=== PATIENT | female | born 1960 | race Caucasian/White ===

== ENCOUNTER 2016-10-14 12:43 | Day surgery (SDC) | payer OTHER ==
[~2016-10-14 12:43] MED LIST: Lactated Ringers 1,000 ML IV SCH; Lidocaine 1%/Sod Bicarbonate in NS 8.4% 1 ML Syringe PRN; Sodium Chloride 0.9% 10 ML Syringe FLUSH PRN
--- NOTE | 2016-10-14 13:11 | PCM.PREANE ---
Preanesthetic Assessment - Anesthesia/Transfusion/Family Hx Anesthesia History: Prior Anesthesia Reaction Type of Anesthesia Reaction: Excessive Nausea/Vomiting Family History of Anesthesia Reaction: No Transfusion History: Unknown Type of Transfusion Reactions: Reports: Unknown - Review of Systems General: No Symptoms Pulmonary: No Symptoms, Other (snoring, current smoker) Cardiovascular: Chest Pain (on a rare occasion), Palpitations (s/p 07/2015 holter monitor showed PSVT with asymptomatic) Gastrointestinal: Other (GERD, hiatal hernia) Neurological: No Symptoms Other: Reports: None - Physical Assessment NPO Status Date: 10/14/16 NPO Status Time: 06:00 (liquids) Pulse: 58 O2 Sat by Pulse Oximetry: 99 Respiratory Rate: 16 Blood Pressure: 120/68 Temperature: 98 C Height: 1.52 m Weight: 77.111 kg ASA Class: 2 Mental Status: Alert & Oriented x3 Airway Class: Mallampati = 2 Dentition: Reports: Normal Dentition Thyro-Mental Finger Breadths: 3 Mouth Opening Finger Breadths: 2 ROM/Head Extension: Full Lungs: Clear to auscultation, Normal respiratory effort Cardiovascular: Regular Rate, Regular Rhythm - Allergies Allergies/Adverse Reactions: Allergies Allergy/AdvReac Type Severity Reaction Status Date / Time strawberry Allergy Anaphylactic Verified 05/28/16 10:53 Shock - Blood Blood Available: No Product(s) Available: None - Acknowledgements Anesthesia Type Planned: General Anesthesia Pt an Appropriate Candidate for the Planned Anesthesia: Yes Alternatives and Risks of Anesthesia Discussed w Pt/Guardian: Yes Pt/Guardian Understands and Agrees with Anesthesia Plan: Yes PreAnesthesia Questionnaire Cardiovascular History: Reports: Heart Murmur Gastrointestinal History: Reports: GERD - SUBSTANCE USE Smoking Status *Q: Current Every Day Smoker Second Hand Smoke Exposure: Yes Days Per Week of Alcohol Use: 0 Number of Drinks Per Day: 0 Total Drinks Per Week: 0 Recreational Drug Use History: No - HOME MEDS Home Medications: Home Meds Ascorbic Acid 500 mg PO ASDIRECTED PRN 07/14/14 [History] Acetaminophen [Tylenol] 650 mg DAILY 05/28/16 [History] Ibuprofen 400 mg PO ASDIRECTED PRN 05/28/16 [History] - CURRENT (IN HOUSE) MEDS Current Meds: Current Medications Lactated Ringer's (Ringers, Lactated) 1,000 mls @ 125 mls/hr IV ASDIRECTED TOAN Stop: 10/14/16 23:00 Lidocaine/Sodium Bicarbonate (Buffered Lidocaine 1% In Ns 8.4%) 0.25 ml .XX ONETIME PRN PRN Reason: Prior to IV Start Stop: 10/14/16 18:00 Sodium Chloride (Saline Flush) 10 ml FLUSH ASDIRECTED PRN PRN Reason: Keep Vein Open Stop: 10/14/16 18:00
[2016-10-14] MEDS ORDERED: HYDROmorphone 0.5 MG/0.5 ML Syringe IVPUSH PRN (13:12)
[2016-10-14] MEDS ORDERED: Scopolamine 1.5 MG Transdermal Patch TRDERM ONE (13:12)
[2016-10-14] MEDS ORDERED: Metoclopramide 10 MG/2 ML SDV IVPUSH PRN (13:12)
[2016-10-14] MEDS ORDERED: Ondansetron 4 MG/2 ML SDV IVPUSH PRN (13:12)
[2016-10-14] MEDS ORDERED: fentaNYL 100 MCG/2 ML SDV IVPUSH PRN ×2 (13:12→15:21)
[2016-10-14] MEDS ORDERED: Bupivacaine 0.5%/EPINEPHrine 1:200,000 50 ML MDV ONE (13:22)
[2016-10-14] MEDS ORDERED: Lidocaine 1% with EPINEPHrine 1:100,000 20 ML MDV ONE (13:23)
[2016-10-14] MEDS ORDERED: ceFAZolin 1 GM Vial ONE (13:32)
[2016-10-14] MEDS ORDERED: Propofol 200 MG/20 ML SDV ONE (13:32)
[2016-10-14] MEDS ORDERED: fentaNYL 250 MCG/5 ML SDV ONE (13:32)
[2016-10-14] MEDS ORDERED: Midazolam 1 MG/ML 2 ML SDV ONE (13:32)
[2016-10-14] MEDS ORDERED: Ondansetron 4 MG/2 ML SDV ONE (14:46)
[2016-10-14] MEDS ORDERED: Dexamethasone 4 MG/ML 5 ML MDV ONE (14:46)
--- NOTE | 2016-10-14 15:34 | PCM.OPNOTE ---
- General Post-Op/Procedure Note Date of Surgery/Procedure: 10/14/16 Operative Procedure(s): Laparoscopic cholecystectomy with incidental primary epigastric hernia repair Pre Op Diagnosis: Gallbladder polyp Post-Op Diagnosis: 1. Gallbladder polyp. 2. Intra-abdominal adhesions. 3. Chronic cholecystitis. 4. Small gallstones. 5. Epigastric hernia Anesthesia Technique: General ET tube, Local Primary Surgeon: Bree Espinosa Anesthesia Provider: Claire Williamson Pathology: Gallbladder Fluid Replacement, Intraop: 1,500 (mL crystalloid ) EBL in mLs: 5 Complications: None Condition: Good Free Text/Narrative:: INDICATION FOR PROCEDURE: The patient is a 56-year-old woman who had been referred to me by CADY Sweet for evaluation for a variety of abdominal symptoms. During her work-up we did find a 2.4 cm gallbladder polyp on ultrasound and I recommended laparoscoic cholecystectomy. I discussed with the patient performing a laparoscopic cholecystectomy and associated risks of the procedure. The patient found these risks acceptable and agreed to proceed. DESCRIPTION OF PROCEDURE: The patient was taken to the operating room and placed in the supine position. Sequential compressive devices were placed on the bilateral lower extremities. After induction of general endotracheal anesthesia, the abdomen was prepped and draped in the usual sterile fashion. Preoperative antibiotics had been administered as per protocol. A supraumbilical curvilinear incision was made using a scalpel. This was deepened down through the subcutaneous tissues to the anterior abdominal wall fascia and a small epigastric hernia was noted superior to the umbilicus. This was used to gain entry into the abdomen. The abdomen was bluntly entered using a hemostat. An 0 Vicryl stay suture was placed. A Evans cannula was introduced into the abdomen and the abdomen was insufflated to 15 mm of mercury. The abdomen was then surveyed. There were a few omental adhesions on the inferior anterior abdominal wall. The bilateral groins showed no evidence of hernia. There were no obvious abnormalities of the small or large intestine. Attention was turned then to the patient's gallbladder which had several omental adhesions. Two additional 5 mm trocars were then placed under direct visualization after first injecting local anesthetic, one in the epigastrium and one in the right subcostal margin. The gallbladder fundus was elevated, and the triangle of Calot was dissected. The omental adhesions were taken down using blunt dissection and electrocautery. The critical view of safety was obtained. The cystic duct and the cystic artery were triply clipped and transected using [facility] [place]. The gallbladder was then taken off the liver bed using hook electrocautery. The gallbladder was placed into an EndoCatch bag. The abdomen was irrigated and suctioned until the effluent was clear. The liver bed was reinspected for hemostasis. The 5 mm trocars were removed with no evidence of bleeding. The Evans cannula and gallbladder within the EndoCatch bag were then removed. The patient's small epigastric hernia was closed using an 0 Vicryl figure-of- eight suture. Additional local anesthetic was injected reza-incisionally. The incisions were then closed using subcuticular 4-0 Monocryl suture. Dermabond was placed over the patient's skin incisions. The patient was then awakened from anesthesia, extubated, and transferred to the recovery room in stable condition having tolerated the procedure well. Sponge and instrument counts were reported as correct at the end of the case. POSTOPERATIVE PLAN: The patient will be discharged home today. Prescriptions for Percocet 5/325mg were given in addition to Zofran ODT and Senna S. They will follow up in 2 weeks for a post-operative check. They are not lift over 20 pounds for the next 4 weeks. They are to call the office with any questions or concerns. I spoke with the patient's daughter after the procedure.
--- NOTE | 2016-10-14 15:42 | PCM.POSTAN ---
POST ANESTHESIA ASSESSMENT - MENTAL STATUS Mental Status: alert, oriented - VITAL SIGNS Pulse Rate: 65 SaO2: 98 Resp Rate: 16 Blood Pressure: 131/81 Temperature: 36.3 C - RESPIRATORY Respiratory Status: respiratory rate WNL, airway patent, O2 saturation stable - CARDIOVASCULAR CV Status: pulse rate WNL, blood pressure stable - GASTROINTESTINAL GI Status: no symptoms - PAIN Pain Score: 6 (Pt given fentanyl 50 mcg) - POST OP HYDRATION Hydration Status: adequate & stable
[2016-10-14] MEDS: HYDROmorphone 0.5 MG/0.5 ML Syringe IVPUSH PRN ×2 (15:51→16:11)
--- NOTE | 2016-10-14 16:08 | PCM48HPAN ---
Post Anesthesia Note - EVALUATION WITHIN 48HRS OF ANESTHETIC Vital Signs in Normal Range: Yes Patient Participated in Evaluation: Yes Respiratory Function Stable: Yes Airway Patent: Yes Cardiovascular Function Stable: Yes Hydration Status Stable: Yes Pain Control Satisfactory: Yes Nausea and Vomiting Control Satisfactory: Yes Mental Status Recovered: Yes
--- NOTE | 2016-10-14 16:38 | PCM.SURGPN ---
- General Info Date of Service: 10/14/16 - Patient Data Vitals - most recent: Last Vital Signs Temp 97.5 F 10/14/16 16:30 Pulse 65 10/14/16 15:42 Resp 15 10/14/16 16:30 BP 117/76 10/14/16 16:30 Pulse Ox 97 10/14/16 16:30 Weight - most recent: 161 lb I&O - last 24 hours: Intake & Output 10/14/16 10/14/16 10/14/16 06:59 14:59 22:59 Intake Total 1500 Balance 1500 Med Orders - Current: Current Medications Fentanyl (Sublimaze) 50 mcg IVPUSH Q5M PRN PRN Reason: pain Stop: 10/14/16 18:00 Last Admin: 10/14/16 15:39 Dose: 50 mcg Lactated Ringer's (Ringers, Lactated) 1,000 mls @ 125 mls/hr IV ASDIRECTED TOAN Stop: 10/14/16 23:00 Last Admin: 10/14/16 13:20 Dose: 125 mls/hr Lidocaine/Sodium Bicarbonate (Buffered Lidocaine 1% In Ns 8.4%) 0.25 ml .XX ONETIME PRN PRN Reason: Prior to IV Start Stop: 10/14/16 18:00 Last Admin: 10/14/16 13:19 Dose: 0.25 ml Metoclopramide HCl (Reglan) 10 mg IVPUSH ONETIME PRN PRN Reason: Nausea/Vomiting Stop: 10/14/16 18:00 Ondansetron HCl (Zofran) 4 mg IVPUSH ONETIME PRN PRN Reason: Nausea/Vomiting Stop: 10/14/16 18:00 Sodium Chloride (Saline Flush) 10 ml FLUSH ASDIRECTED PRN PRN Reason: Keep Vein Open Stop: 10/14/16 18:00 Discontinued Medications Bupivacaine HCl/Epinephrine Bitart (Marcaine 0.5%/Epinephrine 1:200,000) Confirm Administered Dose 50 ml .ROUTE .STK-MED ONE Stop: 10/14/16 13:23 Last Admin: 10/14/16 14:39 Dose: 6.5 ml Cefazolin Sodium (Ancef) Confirm Administered Dose 2 gm .ROUTE .STK-MED ONE Stop: 10/14/16 13:33 Dexamethasone (Dexamethasone) Confirm Administered Dose 20 mg .ROUTE .STK-MED ONE Stop: 10/14/16 14:47 Fentanyl (Sublimaze) Confirm Administered Dose 250 mcg .ROUTE .STK-MED ONE Stop: 10/14/16 13:33 Fentanyl (Sublimaze) 50 mcg IVPUSH Q5M PRN PRN Reason: Pain Stop: 10/14/16 15:37 Hydromorphone HCl (Dilaudid) 0.5 mg IVPUSH Q15M PRN PRN Reason: Pain (severe 7-10) Stop: 10/14/16 13:28 Hydromorphone HCl (Dilaudid) 0.5 mg IVPUSH Q15M PRN PRN Reason: Severe pain Stop: 10/14/16 15:37 Last Admin: 10/14/16 16:11 Dose: 0.5 mg Lidocaine/Epinephrine (Xylocaine 1% With Epinephrine 1:100,000) Confirm Administered Dose 20 ml .ROUTE .STK-MED ONE Stop: 10/14/16 13:24 Last Admin: 10/14/16 14:39 Dose: 6.5 ml Midazolam HCl (Versed 1 Mg/Ml) Confirm Administered Dose 2 mg .ROUTE .STK-MED ONE Stop: 10/14/16 13:33 Ondansetron HCl (Zofran) Confirm Administered Dose 4 mg .ROUTE .STK-MED ONE Stop: 10/14/16 14:47 Propofol (Diprivan 20 Ml) Confirm Administered Dose 200 mg .ROUTE .STK-MED ONE Stop: 10/14/16 13:33 Scopolamine (Transderm-Scop) 1.5 mg TRDERM ONETIME ONE Stop: 10/14/16 13:13 Last Admin: 10/14/16 13:35 Dose: 1.5 mg - Problem List & Annotations (1) Gallbladder polyp SNOMED Code(s): 720557621 Code(s): K82.4 - CHOLESTEROLOSIS OF GALLBLADDER Status: Acute Current Visit: Yes (2) Chronic cholecystitis SNOMED Code(s): 56668627 Code(s): K81.1 - CHRONIC CHOLECYSTITIS Status: Acute Current Visit: Yes (3) Gallstones SNOMED Code(s): 884389255 Code(s): K80.20 - CALCULUS OF GALLBLADDER W/O CHOLECYSTITIS W/O OBSTRUCTION Status: Acute Current Visit: Yes - My Orders Last 24 Hours: Active Orders 24 hr Category Date Time Status Communication Order [RC] ROUTINE Care 10/14/16 13:12 Active Communication Order [RC] ROUTINE Care 10/14/16 15:20 Active Cooling Warming Measures [RC] ASDIRECTED Care 10/14/16 13:12 Active Cooling Warming Measures [RC] ASDIRECTED Care 10/14/16 15:20 Active EKG Documentation Completion [RC] URGENT Care 10/14/16 13:15 Active Notify Provider [RC] ASDIRECTED Care 10/14/16 13:12 Active Notify Provider [RC] ASDIRECTED Care 10/14/16 15:20 Active Oxygen Therapy [RC] ASDIRECTED Care 10/14/16 13:12 Active Oxygen Therapy [RC] ASDIRECTED Care 10/14/16 15:20 Active Peripheral IV Care [RC] . DIRECTED Care 10/14/16 00:01 Active Pulse Oximetry [RC] ASDIRECTED Care 10/14/16 13:12 Active Pulse Oximetry [RC] ASDIRECTED Care 10/14/16 15:20 Active Ready for Discharge [RC] PER UNIT ROUTINE Care 10/14/16 15:54 Active Verify Patient Consent Obtain [RC] ASDIRECTED Care 10/14/16 00:01 Active Vital Signs [RC] Q15M Care 10/14/16 13:12 Active Vital Signs [RC] Q15M Care 10/14/16 15:20 Active Lactated Ringers [Ringers, Lactated] 1,000 ml Med 10/14/16 00:01 Active IV ASDIRECTED Lidocaine 1%/Sod Bicarbonate [Buffered Lidocaine 1% in Med 10/14/16 00:01 Active NS 8.4%] 0.25 ml .XX ONETIME PRN Metoclopramide [Reglan] Med 10/14/16 13:12 Active 10 mg IVPUSH ONETIME PRN Ondansetron [Zofran] Med 10/14/16 13:12 Active 4 mg IVPUSH ONETIME PRN Sodium Chloride 0.9% [Saline Flush] Med 10/14/16 00:01 Active 10 ml FLUSH ASDIRECTED PRN fentaNYL [Sublimaze] Med 10/14/16 13:12 Active 50 mcg IVPUSH Q5M PRN Medication Administration Instruction [OM.PC] Routine Oth 10/14/16 00:01 Ordered Peripheral IV Insertion Adult [OM.PC] Routine Oth 10/14/16 00:01 Ordered Medication Orders Fentanyl (Sublimaze) 50 mcg IVPUSH Q5M PRN PRN Reason: pain Stop: 10/14/16 18:00 Last Admin: 10/14/16 15:39 Dose: 50 mcg Lactated Ringer's (Ringers, Lactated) 1,000 mls @ 125 mls/hr IV ASDIRECTED TOAN Stop: 10/14/16 23:00 Last Admin: 10/14/16 13:20 Dose: 125 mls/hr Lidocaine/Sodium Bicarbonate (Buffered Lidocaine 1% In Ns 8.4%) 0.25 ml .XX ONETIME PRN PRN Reason: Prior to IV Start Stop: 10/14/16 18:00 Last Admin: 10/14/16 13:19 Dose: 0.25 ml Metoclopramide HCl (Reglan) 10 mg IVPUSH ONETIME PRN PRN Reason: Nausea/Vomiting Stop: 10/14/16 18:00 Ondansetron HCl (Zofran) 4 mg IVPUSH ONETIME PRN PRN Reason: Nausea/Vomiting Stop: 10/14/16 18:00 Sodium Chloride (Saline Flush) 10 ml FLUSH ASDIRECTED PRN PRN Reason: Keep Vein Open Stop: 10/14/16 18:00
[2016-10-14 17:03] VITALS: BP 113/64
[2016-10-14] MEDS ORDERED: Acetaminophen/oxyCODONE 325-5 MG Tab PO PRN (17:04)
== END 2016-10-14 17:34 | disposition home or self-care (01) ==
LOC: JD.SDS 12:43
PROVIDERS: ATTEND Surgery
DX: K81.1 Chronic cholecystitis (principal); K43.9 Ventral hernia without obstruction or gangrene; K66.0 Peritoneal adhesions (postprocedural) (postinfection); K21.9 Gastro-esophageal reflux disease without esophagitis; Z98.890 Other specified postprocedural states; Z91.018 Allergy to other foods; Z90.710 Acquired absence of both cervix and uterus
CPT/HCPCS: 47562; 49570; 88304; 93005; A9270; J0690; J1100; J1170; J2250; J2405; J3010; J7120; 00790; J2704

== ENCOUNTER 2017-12-09 15:00 | Emergency (ER) | payer OTHER ==
[2017-12-09 15:12] VITALS: BP 158/96
[2017-12-09] MEDS ORDERED: Ondansetron 4 MG/2 ML SDV IVPUSH ONE (15:47)
[2017-12-09] MEDS ORDERED: Sodium Chloride 0.9% 1,000 ML IV ONE (15:47)
[2017-12-09] MEDS ORDERED: HYDROmorphone 0.5 MG/0.5 ML SYRINGE IVPUSH ONE ×2 (15:48→17:22)
[2017-12-09] MEDS ORDERED: Alum Hydrox/Mag Hydrox/Simeth 30 ML, Lidocaine 2% 15 ML PO ONE ×2 (15:49)
--- NOTE | 2017-12-09 15:54 | EDM.PDOC ---
ED HPI GENERAL MEDICAL PROBLEM - General Chief Complaint: Abdominal Pain Stated Complaint: ABD PAIN/VOMITING Time Seen by Provider: 12/09/17 15:28 Source of Information: Reports: Patient History Limitations: Reports: No Limitations - History of Present Illness INITIAL COMMENTS - FREE TEXT/NARRATIVE: Patient is a 57-year-old female who presents ED complaining of epigastric pain. Pain is described as a cramping sensation localized with no radiation. States it came on approx 1.5 hours ago while at work. She became dizzy, nauseated, and had multiple episodes of emesis. She's had multiple attacks as such. Normally symptoms only last for a few minutes and subsided quickly. She states this was different since it lasted for so long. Upon admission to the ED symptoms are improving. She's never been evaluated in the emergency department before for this complaint. She's been seen by a GI doctor at [facility] with multiple imaging and studies obtained. She has a MRI scheduled for January 06 to evaluate for lesions/cyst to her liver. She's had CT the abdomen, gallbladder removed, appendix removed, EGD, and colonoscopy with no clear etiology for discomfort. She denies any acid reflux. No pain worsened with eating. There has been no documented fever, diarrhea, blood in her stool, dysuria, chest pain, and/or shortness of breath. She does have a history of chronic constipation and has to take laxatives and to have a BM. The dicyclomine is used for abdominal cramping as well. She takes it four times a day. Upper Abdomen Pain Score (Numeric/FACES): 9 - Related Data Allergies Allergy/AdvReac Type Severity Reaction Status Date / Time strawberry Allergy Anaphylactic Verified 12/09/17 15:26 Shock Home Meds: Home Meds DULoxetine [Cymbalta] 30 mg PO DAILY 12/09/17 [History] Dicyclomine [Bentyl] 10 mg PO QIDACANDBED PRN 12/09/17 [History] Gabapentin [Neurontin] 200 mg PO BEDTIME 12/09/17 [History] Lisinopril [Prinivil] 5 mg PO BID 12/09/17 [History] Meloxicam 15 mg PO DAILY 12/09/17 [History] Omeprazole 20 mg PO DAILY 12/09/17 [History] Rosuvastatin [Crestor] 5 mg PO DAILY 12/09/17 [History] Past Medical History Cardiovascular History: Reports: Heart Murmur, High Cholesterol, Hypertension Gastrointestinal History: Reports: Chronic Constipation, GERD Musculoskeletal History: Reports: Arthritis Social & Family History - Tobacco Use Smoking Status *Q: Current Some Day Smoker Years of Tobacco use: 28 Packs/Tins Daily: 0.5 Used Tobacco, but Quit: No Second Hand Smoke Exposure: No - Caffeine Use Caffeine Use: Reports: Coffee - Recreational Drug Use Recreational Drug Use: No ED ROS GENERAL - Review of Systems Review Of Systems: ROS reveals no pertinent complaints other than HPI. ED EXAM, GI/ABD - Physical Exam Exam: See Below Exam Limited By: No Limitations General Appearance: Alert, WD/WN, Mild Distress Ears: Hearing Grossly Normal Nose: Normal Inspection Throat/Mouth: Normal Inspection, Normal Oropharynx, Normal Voice, No Airway Compromise Neck: Normal Inspection, Supple Respiratory/Chest: No Respiratory Distress, Lungs Clear, Normal Breath Sounds, No Accessory Muscle Use, Chest Non-Tender Cardiovascular: Normal Peripheral Pulses, Regular Rate, Rhythm, No Murmur GI/Abdominal Exam: Soft, No Organomegaly, No Distention, Tender (epigastric region), Abnormal Bowel Sounds (hyperactive) Back Exam: Normal Inspection Extremities: Normal Inspection Neurological: Alert, Oriented, CN II-XII Intact, Normal Cognition Psychiatric: Normal Affect, Normal Mood Skin Exam: Warm, Dry, Intact, Normal Color, No Rash Course - Vital Signs Last Recorded V/S: Last Vital Signs Temp 98.7 F 12/09/17 15:09 Pulse 87 12/09/17 15:09 Resp 20 12/09/17 15:09 BP 158/96 H 12/09/17 15:09 Pulse Ox 100 12/09/17 15:09 Orthostatic Blood Pressure [ 139/92 Standing] Orthostatic Blood Pressure [ 139/92 Sitting] Orthostatic Blood Pressure [ 131/84 Supine] - Orders/Labs/Meds Orders: Active Orders 24 hr Category Date Time Status EKG Documentation Completion [RC] STAT Care 12/09/17 15:47 Active Orthostatic Vital Signs [RC] ASDIRECTED Care 12/09/17 15:47 Active Abdomen 2V AP Flat Upright [CR] Stat Exams 12/09/17 15:47 Taken Labs: Laboratory Tests 12/09/17 12/09/17 Range/Units 15:30 15:30 WBC 10.35 H (3.98-10.04) K/mm3 RBC 5.05 (3.98-5.22) M/mm3 Hgb 14.9 (11.2-15.7) gm/L Hct 44.7 (34.1-44.9) % MCV 88.5 (79.4-94.8) fl MCH 29.5 (25.6-32.2) pg MCHC 33.3 (32.2-35.5) g/dl RDW Std Deviation 40.9 (36.4-46.3) fL Plt Count 329 (182-369) K/mm3 MPV 9.3 L (9.4-12.3) fl Neutrophils % (Manual) 50 (40-60) % Band Neutrophils % 0 (0-10) % Lymphocytes % (Manual) 44 H (20-40) % Atypical Lymphs % 0 % Monocytes % (Manual) 4 (2-10) % Eosinophils % (Manual) 0 L (0.7-5.8) % Basophils % (Manual) 2 H (0.1-1.2) Platelet Estimate Adequate Plt Morphology Comment Normal RBC Morph Comment Normal Sodium 141 (136-145) mEq/L Potassium 3.6 (3.5-5.1) mEq/L Chloride 106 (98-107) mEq/L Carbon Dioxide 20 L (21-32) mEq/L Anion Gap 18.6 H (5-15) BUN 15 (7-18) mg/dL Creatinine 1.0 (0.55-1.02) mg/dL Est Cr Clr Drug Dosing 44.58 mL/min Estimated GFR (MDRD) 57 (>60) mL/min BUN/Creatinine Ratio 15.0 (14-18) Glucose 150 H (74-106) mg/dL Calcium 10.8 H (8.5-10.1) mg/dL Total Bilirubin 0.4 (0.2-1.0) mg/dL AST 29 (15-37) U/L ALT 35 (14-59) U/L Alkaline Phosphatase 136 H (46-116) U/L Troponin I < 0.017 (0.00-0.056) ng/mL C-Reactive Protein 0.2 (<1.0) mg/dL Total Protein 7.5 (6.4-8.2) g/dl Albumin 4.0 (3.4-5.0) g/dl Globulin 3.5 gm/dL Albumin/Globulin Ratio 1.1 (1-2) Lipase 119 (73-393) U/L Meds: Medications Discontinued Medications Generic Name Dose Route Start Last Admin Trade Name Gildardo PRN Reason Stop Dose Admin Capsaicin 1 gm 12/09/17 17:02 12/09/17 17:37 Zostrix 0.025% [facility] TOP 12/09/17 17:03 Not Given ONETIME ONE Al Hydroxide/Mg Hydroxide 30 0 ml 12/09/17 15:49 12/09/17 16:22 ml/ Lidocaine HCl 15 ml PO 12/09/17 15:50 45 ml ONETIME ONE Administration Diatrizoate Meglum/Diatrizoate Sod 90 ml 12/09/17 18:49 12/09/17 19:11 Gastrografin 37% PO 12/09/17 18:50 90 ml ONETIME ONE Administration Dicyclomine HCl 20 mg 12/09/17 16:57 12/09/17 17:13 Bentyl IM 12/09/17 16:58 20 mg ONETIME ONE Administration Fentanyl 75 mcg 12/09/17 17:36 12/09/17 17:54 Sublimaze IVPUSH 12/09/17 17:37 75 mcg ONETIME ONE Administration Hydromorphone HCl 0.5 mg 12/09/17 15:48 12/09/17 16:17 Dilaudid IVPUSH 12/09/17 15:49 0.5 mg ONETIME ONE Administration Hydromorphone HCl 0.5 mg 12/09/17 17:22 12/09/17 17:27 Dilaudid IVPUSH 12/09/17 17:23 0.5 mg ONETIME ONE Administration Sodium Chloride 1,000 mls @ 999 mls/hr 12/09/17 15:47 12/09/17 16:20 Normal Saline IV 12/09/17 16:47 999 mls/hr ONETIME ONE Administration Iopamidol 120 ml 12/09/17 18:49 12/09/17 19:11 Isovue-300 (61%) IVPUSH 12/09/17 18:50 120 ml ONETIME ONE Administration Magnesium Citrate 296 ml 12/09/17 20:39 12/09/17 20:51 Citrate Of Magnesia PO 12/09/17 20:40 296 ml ONETIME ONE Administration Ondansetron HCl 4 mg 12/09/17 15:47 12/09/17 16:15 Zofran IVPUSH 12/09/17 15:48 4 mg ONETIME ONE Administration - Re-Assessments/Exams Free Text/Narrative Re-Assessment/Exam: IV established was Zofran 4 mg IVP, IV fluids, Dilaudid 0.5 mg IVP, and GI cocktail. Initial labs and studies include: CBC, chem 14, CRP, lipase, troponin, EKG, orthostatic vitals, and 2 view flat and upright. Orthostatic vitals negative. Ordered capsaicin cream to be applied to the belly in hopes this would help with the abdominal pain. EKG sinus rhythm at a rate of [address] changes noted. Labs reviewed: CBC and chemistry panel were essentially normal. Carbon dioxide 20, AG 18.6, lipase normal. Troponin normal. CRP normal. Ordered capsaicin cream to be applied to the belly in hopes this would help with the abdominal pain. Per nursing staff the capsaicin cream is not available. 1738 Patient's experiencing increasing pain to her epigastric region. Quite severe in nature. I will order fentanyl [address] also [address] the abdomen and pelvis with oral and IV contrast. 12/09/17 19:45 Reassessment, patient is feeling much better. No complaints for sometime. Awaiting for final interpretation. CT abdomen and pelvis Findings: Visualized lung bases shows nothing acute. Liver shows a small hyperenhancing lesion within the left lobe most likely due to early enhancing hemangioma as an incidental lobe. This appears iso-dense to the liver on the more delayed images. No additional abnormality is seen within the liver. Size of the early enhancing lesion measures 2.1 cm. Spleen appears within normal limits. Gastroesophageal reflux of contrast is noted. Low density finding is seen within the upper pole of the right kidney most likely representing an upper pole cyst measuring 1.5 cm. Kidneys are otherwise unremarkable. Adrenal glands show no nodule. Pancreas is normal. Surgical clips are seen from prior cholecystectomy. Aorta shows no aneurysmal dilatation. No retroperitoneal adenopathy is seen. Appendix is seen and measures at the upper limits of normal at 8 mm. No inflammatory change is seen around the appendix at this time. No mesenteric abnormalities are seen. No pelvic mass or adenopathy is seen. Delayed images shows contrast excretion into both ureters and bladder. No ureteral obstruction is seen. Small cystic lesion is noted within the right side of the pelvis measuring 1.9 cm believed to represent an incidental ovarian cyst. Ultrasound could be considered as a nonemergent study to confirm ovarian etiology and allow for follow-up. Bone window settings were reviewed which appear within normal limits for the patient's age. Incidental note of small fat containing umbilical hernia is seen. Impression: 1. Appendix measures at the upper limits of normal in size at 8 mm with no surrounding inflammatory change. I believe there are no findings of appendicitis at this time but please correlate that patient has no symptoms of very early appendicitis. 2. Gastroesophageal reflux of contrast. 3. Cystic lesion believed to be within the ovary for which ultrasound is recommended on a nonemergent basis. 4. Other incidental findings as described above. 2028 Reassessment, patient has no new pain to her abdomen suggesting appendicitis on examination. She is feeling much better. Again it's unclear what the cause of abdominal pain is. She's been seen by multiple providers with multiple test obtained. GI specialist is following her with MRI of the abdomen planned the near future. Discomfort she is currently experiencing to the abdomen is similar to previous episodes. Nothing changed except duration. She is ready be discharged home. We discussed continuing MiraLAX usage with copious wants water, increase fiber in her diet, and exercise to help with her constipation. She will attempt to decrease laxative usage once stool pattern has softened and more regular. Will send patient home with a bottle of mag citrate 296mls. The patient remained hemodynamically stable while under my care in the E.D. I discussed the concerning symptoms for which to return to the E.D. with the patient/family. The patient/family verbalized understanding. All questions were answered. Departure - Departure Time of Disposition: 20:33 Disposition: Home, Self-Care 01 Condition: Good Clinical Impression: Abdominal pain Qualifiers: Abdominal location: epigastric Qualified Code(s): R10.13 - Epigastric pain - Discharge Information Instructions: Abdominal Pain, Adult, Constipation, Adult, [id number], Pain Medicine Instructions, [id number], Pain Without a Known Cause Referrals: Sarah Medina [employer] [Primary Care Provider] - Forms: ED Department Discharge Additional Instructions: Please follow up with her GI specialist over the next few days to discuss recent events. No driving today since receiving a sedative medication while in the ED. As discussed will have you increase fiber in her diet, exercise routine , and also start taking MiraLAX one capful daily with juice. Increase water intake. Take mag citrate 1/2 bottle this evening. Tomorrow morning take the remainder. Continue taking all your home medications as prescribed. Return to the ED if you develop any new or worsening symptoms. - My Orders Last 24 Hours: My Active Orders 12/09/17 15:47 EKG Documentation Completion [RC] STAT Orthostatic Vital Signs [RC] ASDIRECTED Abdomen 2V AP Flat Upright [CR] Stat - Assessment/Plan Last 24 Hours: My Active Orders 12/09/17 15:47 EKG Documentation Completion [RC] STAT Orthostatic Vital Signs [RC] ASDIRECTED Abdomen 2V AP Flat Upright [CR] Stat
[2017-12-09] MEDS ORDERED: Dicyclomine 20 MG/2 ML SDV IM ONE (16:57)
[2017-12-09] MEDS ORDERED: Capsaicin 0.025% Crm 60 GM Tube TOP ONE (17:02)
[2017-12-09] MEDS ORDERED: fentaNYL 100 MCG/2 ML SDV IVPUSH ONE (17:36)
[2017-12-09] MEDS ORDERED: Diatrizoate Meglumine/Diatrizoate Sodium 37% 120 ML Bottle PO ONE (18:49)
[2017-12-09] MEDS ORDERED: Iopamidol 612 MG/ML 150 ML Bottle IVPUSH ONE (18:49)
--- NOTE | 2017-12-09 20:18 | CT ---
CT abdomen and pelvis Technique: Multiple axial sections were obtained from above the dome of the diaphragm inferiorly through the pubic symphysis. Intravenous and oral contrast was utilized. Delayed images were also obtained through the abdomen and pelvis. Findings: Visualized lung bases shows nothing acute. Liver shows a small hyperenhancing lesion within the left lobe most likely due to early enhancing hemangioma as an incidental lobe. This appears iso-dense to the liver on the more delayed images. No additional abnormality is seen within the liver. Size of the early enhancing lesion measures 2.1 cm. Spleen appears within normal limits. Gastroesophageal reflux of contrast is noted. Low density finding is seen within the upper pole of the right kidney most likely representing an upper pole cyst measuring 1.5 cm. Kidneys are otherwise unremarkable. Adrenal glands show no nodule. Pancreas is normal. Surgical clips are seen from prior cholecystectomy. Aorta shows no aneurysmal dilatation. No retroperitoneal adenopathy is seen. Appendix is seen and measures at the upper limits of normal at 8 mm. No inflammatory change is seen around the appendix at this time. No mesenteric abnormalities are seen. No pelvic mass or adenopathy is seen. Delayed images shows contrast excretion into both ureters and bladder. No ureteral obstruction is seen. Small cystic lesion is noted within the right side of the pelvis measuring 1.9 cm believed to represent an incidental ovarian cyst. Ultrasound could be considered as a nonemergent study to confirm ovarian etiology and allow for follow-up. Bone window settings were reviewed which appear within normal limits for the patient's age. Incidental note of small fat containing umbilical hernia is seen. Impression: 1. Appendix measures at the upper limits of normal in size at 8 mm with no surrounding inflammatory change. I believe there are no findings of appendicitis at this time but please correlate that patient has no symptoms of very early appendicitis. 2. Gastroesophageal reflux of contrast. 3. Cystic lesion believed to be within the ovary for which ultrasound is recommended on a nonemergent basis. 4. Other incidental findings as described above. Diagnostic code #3
[2017-12-09] MEDS ORDERED: Magnesium Citrate Solution 296 ML Bottle PO ONE (20:39)
--- NOTE | 2017-12-10 12:07 | CR ---
Abdomen: Supine and upright views of the abdomen were obtained. Comparison: No prior abdominal x-ray. Bowel gas pattern appears normal. Surgical clips are seen from prior cholecystectomy. No free air is seen. Bony structures are unremarkable. Impression: 1. Incidental findings. Nothing acute is seen on two-view abdominal x-ray. Diagnostic code #2
== END 2017-12-09 20:55 | disposition home or self-care (01) ==
LOC: JD.ED 15:00
DX: K21.9 Gastro-esophageal reflux disease without esophagitis (principal); Z91.018 Allergy to other foods; I10 Essential (primary) hypertension; F17.210 Nicotine dependence, cigarettes, uncomplicated
CPT/HCPCS: 36415; 74019; 74177; 80053; 83690; 84484; 85007; 85027; 86140; 93005; 96361; 96372; 96374; 96375; 96376; 99285; A9270; J0500; J1170; J2405; J3010; J7040; Q9963; Q9967; 99284

== ENCOUNTER 2021-04-12 08:43 | Emergency (ER) | payer OTHER ==
[2021-04-12 08:53] VITALS: BP 165/101; PULSE 72
[2021-04-12] MEDS ORDERED: Diphtheria,Pertussis(Acell),Tetanus Vaccine 0.5 ML Syringe IM ONE (08:57)
[2021-04-12] MEDS ORDERED: Lidocaine 1% with EPINEPHrine 1:100,000 10 ML MDV INJECT ONE (08:57)
--- NOTE | 2021-04-12 09:01 | EDM.PDOC ---
ED HPI GENERAL MEDICAL PROBLEM - General Chief Complaint: Laceration Stated Complaint: HAND LAC Time Seen by Provider: 04/12/21 08:58 Source of Information: Reports: Patient History Limitations: Reports: No Limitations - History of Present Illness INITIAL COMMENTS - FREE TEXT/NARRATIVE: 56-year-old female with history of hypertension presenting with chief complaint of laceration of the right hand. This injury occurred 20 minutes prior to arrival. Patient struck her hand on a door. Bleeding controlled with direct pressure. Minimal pain to the area. No associated swelling. No other interventions performed prior to arrival. Right Hand Pain Score (Numeric/FACES): 4 - Related Data Allergies Allergy/AdvReac Type Severity Reaction Status Date / Time strawberry Allergy Anaphylactic Verified 04/12/21 08:49 Shock Home Meds: Home Meds . [No Known Home Meds] 04/12/21 [History] Past Medical History Cardiovascular History: Reports: Heart Murmur, High Cholesterol, Hypertension Gastrointestinal History: Reports: Chronic Constipation, GERD Musculoskeletal History: Reports: Arthritis Psychiatric History: Reports: Anxiety - Past Surgical History Endocrine Surgical History: Reports: Thyroidectomy Social & Family History - Tobacco Use Tobacco Use Status *Q: Current Every Day Tobacco User Years of Tobacco use: 30 Packs/Tins Daily: 0.5 - Caffeine Use Caffeine Use: Reports: Coffee - Recreational Drug Use Recreational Drug Use: No ED ROS GENERAL - Review of Systems Review Of Systems: Comprehensive ROS is negative, except as noted in HPI. ED EXAM, SKIN/RASH Exam: See Below Text/Narrative:: General: Well-appearing. Nontoxic. Appears stated age. Hand: Curved linear laceration to the dorsum of the right hand approximately 2 cm in length. Symmetrically palpable radial and ulnar pulses. Capillary refill <2 seconds to all digits. Intact sensation to light touch of the radial, median and ulnar nerves demonstrated by testing in the dorsal web space of the thumb, the distal palmar aspect of the index finger, and the lateral surface of the fifth finger. 2 point discrimination intact to 5mm (up to 6mm can be normal in digits 3-5) of discrimination in the affected digit. Intact motor function of the radial, median and ulnar nerves demonstrated by strength of extension of the isolated distal joint of the index finger, hand account strategist, and spreading of the 2nd through 5th digits. Intact recurrent median nerve as demonstrated by ability to move thumb fully through opposition, abduction and flexion. No snuffbox tenderness. ED SKIN PROCEDURES - Laceration/Wound Repair Right Dorsal Hand Appearance: Superficial Distal NVT: Neuro & Vascular Intact Anesthetic Type: Local Local Anesthesia - Lidocaine (Xylocaine): 1% with EPI Local Anesthetic Volume: 2cc Exploration/Debridement/Repair: Wound Explored, No Foreign Material Found Closed with: Sutures Lac/Wound length In cm: 2.5 Suture Size: 4-0 # of Sutures: 3 Sterile Dressing Applied: Nurse Tetanus Status Addressed: Yes Complications: No Course - Vital Signs Last Recorded V/S: Last Vital Signs Temp 36.2 C 04/12/21 08:50 Pulse 72 04/12/21 08:50 Resp 12 04/12/21 08:50 BP 165/101 H 04/12/21 08:50 Pulse Ox 95 04/12/21 08:50 - Orders/Labs/Meds Orders: Active Orders 24 hr Category Date Time Status Vaccine to be Administered/Admin Charge [RC] ASDIRECTED Care 04/12/21 08:58 Active Meds: Medications Discontinued Medications Generic Name Dose Route Start Last Admin Trade Name Gildardo PRN Reason Stop Dose Admin Diphtheria/Tetanus/Acell Pertussis 0.5 ml 04/12/21 08:57 Diphtheria,Pertussis(Acell),Tetanus Vaccine 0.5 Ml Syringe IM 04/12/21 08:58 .ONCE ONE Lidocaine/Epinephrine 10 ml 04/12/21 08:57 Lidocaine 1% With Epinephrine 1:100,000 10 Ml Mdv INJECT 04/12/21 08:58 ONETIME ONE Lidocaine/Epinephrine Confirm 04/12/21 09:09 Lidocaine 1% With Epinephrine 1:100,000 20 Ml Mdv Administered 04/12/21 09:10 Dose 20 ml .ROUTE .STK-MED ONE Departure - Departure Time of Disposition: 09:26 Disposition: Home, Self-Care 01 Clinical Impression: Laceration of right hand - Discharge Information Referrals: Haris Bahena MD [Primary Care Provider] - Forms: ED Department Discharge, ED Return to Work/School Form Additional Instructions: Sutures should be removed in 1 week. Monitor for signs of infection such as increased redness, swelling or pain. Sepsis Event Note (ED) - Evaluation Sepsis Screening Result: No Definite Risk - Focused Exam Vital Signs: Vital Signs Temp Pulse Resp BP Pulse Ox 04/12/21 08:50 36.2 C 72 12 165/101 H 95 - My Orders Last 24 Hours: My Active Orders 04/12/21 08:58 Vaccine to be Administered/Admin Charge [RC] ASDIRECTED - Assessment/Plan Last 24 Hours: My Active Orders 04/12/21 08:58 Vaccine to be Administered/Admin Charge [RC] ASDIRECTED Assessment:: Simple laceration to the right hand. No evidence of fracture or tendon involvement. No imaging indicated. Repaired appropriately. Discharged in sta ble condition.
[2021-04-12] MEDS ORDERED: Lidocaine 1% with EPINEPHrine 1:100,000 20 ML MDV ONE (09:09)
== END 2021-04-12 09:58 | disposition home or self-care (01) ==
LOC: JD.ED 08:43
DX: S61.411A Laceration without foreign body of right hand, initial encounter (principal); I10 Essential (primary) hypertension; Z91.018 Allergy to other foods; Z72.0 Tobacco use; Z23 Encounter for immunization; W22.09XA Striking against other stationary object, initial encounter
CPT/HCPCS: 12001; 90471; 90715; 99282-25